=== PATIENT | female | born 1970 | race Two or more races ===

== ENCOUNTER 2019-03-30 09:03 | Emergency (ER) | payer SELFPAY ==
[~2019-03-30] VITALS: Ht 152.4 cm; Wt 58.7 kg
[2019-03-30 09:25] VITALS: BP 121/76
[2019-03-30] MEDS ORDERED: TRAM50TA PO (10:02)
[2019-03-30] MEDS ORDERED: GABA300C18 PO (10:02)
[2019-03-30] MEDS ORDERED: PRED-220 PO (10:02)
--- NOTE | 2019-03-30 10:02 | PHYS DOC ---
Past Medical History Past Medical History: Other Additional Past Medical Histor: shingles Past Surgical History: No Surgical History Alcohol Use: None Drug Use: None Adult General Chief Complaint Chief Complaint: UPPER EXTREMITY PAIN HPI HPI Patient is a 48 year old female patient who presents to the ED today complaining of pain around her shoulders after being diagnosed with shingles 2 weeks ago. Patient states she was given naproxen for pain which is not helping. Denies any fever. Review of Systems Review of Systems Constitutional: Denies fever or chills [] Musculoskeletal: Reports left shoulder pain from shingles Integument: Denies rash or skin lesions [] Neurologic: Denies headache, focal weakness or sensory changes [] All other systems were reviewed and found to be within normal limits, except as documented in this note. Allergies Allergies Allergies Coded Allergies Type Severity Reaction Last Updated Verified No Known Drug Allergies 03/30/19 No Physical Exam Physical Exam Constitutional: Well developed, well nourished, no acute distress, non-toxic appearance. [] Skin: Warm, dry, and left scapular and left upper breast with crusted regions consistent with shingles. Back: No tenderness, no CVA tenderness. [] Extremities: No tenderness, no cyanosis, no clubbing, ROM intact, no edema. [] Neurologic: Alert and oriented X 3, normal motor function, normal sensory function, no focal deficits noted. [] Psychologic: Affect normal, judgement normal, mood normal. [] Current Patient Data Vital Signs Vital Signs Date Time Temp Pulse Resp B/P (MAP) Pulse Ox O2 Delivery O2 Flow Rate FiO2 03/30/19 09:25 98.4 93 16 121/76 (91) 100 Room Air 98.4 EKG EKG [] Radiology/Procedures Radiology/Procedures [] Course & Med Decision Making Course & Med Decision Making Pertinent Labs and Imaging studies reviewed. (See chart for details) This is a 48-year-old female patient presenting to the ED today with left shoulder pain from shingles which she was diagnosed 2 weeks ago. She is currently on naproxen with no relief. Given prescription for prednisone, gabapentin and tramadol. Follow-up with PCP in one to 2 weeks. Dragon Disclaimer Dragon Disclaimer This electronic medical record was generated, in whole or in part, using a voice recognition dictation system. Departure Departure Impression: Primary Impression: Shingles rash Disposition: HOME, SELF-CARE Condition: STABLE Referrals: NO PCP (PCP) follow up with your doctor in 1-2 weeks Patient Instructions: Shingles, [id number] Additional Instructions: You were evaluated in the emergency room with shingles pain. Take the prescribed medications as ordered. Follow-up with your doctor in 1-2 weeks. Scripts Gabapentin (GABAPENTIN ) 300 Mg Capsule 300 MG PO TID PRN for PAIN, #30 CAP Prov: MIKI MONTENEGRO APRN 03/30/19 Prednisone (PREDNISONE ) 10 Mg Tablet 10 MG PO UD for PREDNISONE TAPER, #39 TAB 0 Refills Take 3 tablets by mouth twice a day for 3 days, then take 2 tablets by mouth twice a day for 3 days, then take 1 tablet by mouth twice a day for 3 days, then take 1 tablet by mouth daily x 3 days, then stop. Prov: MIKI MONTENEGRO APRN 03/30/19 Tramadol Hcl (TRAMADOL HCL) 50 Mg Tablet 50 MG PO Q6HRS PRN for PAIN, #60 TAB Prov: MIKI MONTENEGRO APRN 03/30/19 Problem Qualifiers Primary Impression: Shingles rash Herpes zoster complications: without complications Qualified Codes: B02.9 - Zoster without complications MIKI MONTENEGRO APRN Mar 30, 2019 10:02
== END 2019-03-30 10:52 | disposition home or self-care (01) ==
LOC: ER 09:03
DX: B02.9 Zoster without complications (principal)
CPT/HCPCS: 99283